=== PATIENT | male | born 1935 | race Caucasian/White ===

== ENCOUNTER 2017-04-08 06:28 | Observation (INO) | payer OTHER ==
[2017-04-08] VITALS (7 sets, daily range): BP systolic 130–156; BP diastolic 59–66
[~2017-04-08] VITALS: Ht 182.9 cm; Wt 117.9 kg
--- NOTE | ~2017-04-08 | EKG ---
[address] [address] ELECTROCARDIOGRAM REPORT Name: LARRY BOWEN Room #: 216-P [facility] M.R.#: [id number] Admission: 04/08/17 Attend Phys: Shankar Godinez MD Discharge: Date of : 39 Report #: [id number] THIS REPORT FOR: //name// [facility] Test Date: 2017-04-08 Test Time: 06:59:38 Pat Name: LARRY BOWEN Department: Room: 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 MAZARIEGOS : 1935 Requested By: Shankar Godinez Order Number: [id number] MD: Richard Granados Measurements Intervals [place] Rate: 64 P: 0 PA: QRS: 76 QRSD: 188 T: QT: QTc: 0 Interpretive Statements Ventricular-paced rhythm No further analysis attempted due to paced rhythm Compared to ECG 06/28/2013 08:20:15 Left bundle-branch block no longer present Electronically Signed On 04-08-2017 15:28:40 CDT by Richard Granados [email or web address] <ELECTRONICALLY SIGNED> By: Richard Granados MD 04/08/17 1528 0659 0659 Richard Granados MD /RICA
--- NOTE | ~2017-04-08 | EKG ---
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 : 1935 Requested By: Shankar Gdoinez Order Number: [id number] MD: Richard Granados Measurements Intervals [place] Rate: 60 P: 0 MI: 58 QRS: -55 QRSD: 223 T: 123 QT: 527 QTc: 527 Interpretive Statements Ventricular-paced rhythm No further analysis attempted due to paced rhythm Compared to ECG 06/28/2013 08:20:15 Left bundle-branch block no longer present Electronically Signed On 04-08-2017 15:35:52 CDT by Richard Granados [email or web address] <ELECTRONICALLY SIGNED> By: Richard Granados MD 04/08/17 1535 134 134 Richard Granados MD /RICA
--- NOTE | ~2017-04-08 | D ---
[facility] [place] [address] DISCHARGE SUMMARY Name: LARRY BOWEN Room #: 216-P [facility] Brenden Peres#: [id number] Admission: 04/08/17 Attend Phys: Shankar Godinez MD Discharge: 04/09/17 Date of : 39 Report #: [id number] THIS REPORT FOR: //name// CC: Ari Godinez DATE OF SERVICE: 04/09/2017 FINAL DIAGNOSES: 1. Unstable angina, status post coronary angioplasty. 2. History of coronary artery disease with multiple stent procedures. 3. Paroxysmal atrial fibrillation. 4. Heart block status post permanent pacemaker in 2011. 5. Symptomatic PVCs and bigeminy. 6. Hypertension. 7. Hypercholesterolemia. 8. Prostate cancer. HOSPITAL COURSE: Please see the original H and P for full details. He presented with recent onset of unstable angina. Just walking would elicit chest pains. Please see the cardiac catheterization report for full details. 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 He was found to have a new, subtotal occlusion within the mid LAD segment. The diagnostic cardiac catheterization was performed in view of the left radial artery approach. Due to excessive tortuosity of the left subclavian artery, the interventional procedure had to be performed via the right femoral artery access. A drug-eluting stent was placed into the subtotal LAD occlusion. He has remained hemodynamically stable overnight. The patient denies any episodes of chest pains or shortness of breath. He is stable for discharge. FINAL DISPOSITION: He will continue with amiodarone 200 mg daily, Elavil, aspirin 81 mg daily, Lipitor 20 mg tablet half a tablet daily, Coreg 12.5 mg twice a day. He will resume Pradaxa therapy 150 mg twice a day, fish oil, hydrochlorothiazide once a day, Bystolic 5 mg daily, Benicar 40 mg daily, Prilosec and he will continue with Plavix therapy 75 mg once a day. <ELECTRONICALLY SIGNED> By: Shankar Godinez MD 04/11/17 0759 0937 Shankar Godinez MD /nt
--- NOTE | ~2017-04-08 | H ---
[facility] [address] [address] HISTORY AND PHYSICAL Name: LARRY BOWEN [id number] Admission: 04/08/17 Attend Phys: Shankar Godinez MD Discharge: Date of : 39 Report #: [id number] THIS REPORT FOR: //name// CC: Ari Godinez DATE OF SERVICE: 04/08/2017 DATE OF SERVICE: 04/08/2017 INDICATION: Chest pain. HISTORY OF PRESENT ILLNESS: This is a 81-year-old gentleman presenting with recurrent chest pains with exertion. He has a history of stent to the RCA, normal circumflex artery and LAD. He underwent placement of a permanent pacemaker in 2011. He also has a history of paroxysmal atrial fibrillation, hypertension, hypercholesterolemia, sleep apnea and symptomatic PVCs. Recently, he reported having occasional episodes of chest pains with moderate levels of physical exertion. At that time, he wanted to continue with medical management only. For the past 2 weeks, he has had a progression of his symptoms, occurring with lesser amounts of exertion. Just walking will elicit his anginal episodes. He offers no complaints of fever, nausea, diarrhea, abdominal pain, or orthopnea. PAST MEDICAL HISTORY: In 2009, stent to the RCA and a normal circumflex. In 2013, stent to the LAD (known to have a tortuous right subclavian artery). Permanent pacemaker in 2011 for heart block. Hypertension, hypercholesterolemia, sleep apnea, history pseudoaneurysm status post thrombin injection, symptomatic PVCS, mild to moderate aortic insufficiency. ALLERGIES: None. MEDICATIONS: Aspirin once a day, amiodarone 200 mg daily, Lipitor 10 mg, Coreg 12.5 mg twice a day, Pradaxa on hold, omeprazole 20 mg, Benicar 40 mg daily. SOCIAL HISTORY: Negative for tobacco use. FAMILY HISTORY: Negative for premature CAD. REVIEW OF SYSTEMS: A full 10-point review of systems performed. Only the pertinent positives and negatives as described in the HPI. PHYSICAL EXAMINATION: VITAL SIGNS: Blood pressure is 156/60, heart rate is 60 beats per minute. GENERAL APPEARANCE: An overweight male, in no acute respiratory distress. [facility] [address] [place] [address] HISTORY AND PHYSICAL Name: LARRY BOWEN Room #: REG [facility]#: [id number] Admission: 04/08/17 Attend Phys: Shankar Godinez MD Discharge: Date of : 39 Report #: [id number] HEAD AND EYES: Normocephalic. Sclerae are anicteric. ENT: Oral mucosa moist. NECK: Supple, no JVD. LUNGS: Clear to auscultation. CARDIAC: Regular rate and rhythm, S1, S2 positive. ABDOMEN: Soft. Bowel sounds positive. EXTREMITIES: No cyanosis. Trace edema. LABORATORY VALUES: ECG reveals ventricular paced rhythm. ASSESSMENT: 1. Unstable angina. 2. Permanent pacemaker. 3. Paroxysmal atrial fibrillation. 4. Symptomatic PVCs. 5. Hypertension. 6. Hypercholesterolemia. 7. Gastroesophageal reflux disease. PLAN: As outlined above, the patient presents with unstable angina. The plan is to proceed with a cardiac catheterization. <ELECTRONICALLY SIGNED> By: Shankar Godinez MD 04/08/17 0850 0 Shankar Godinez MD /nt
--- NOTE | ~2017-04-08 | CATHLAB ---
[facility] [address] [place] [address] INVASIVE PROCEDURE REPORT Name: LARRY BOWEN Room #: 216-P [facility] IN ..#: [id number] Admission: 04/08/17 Attend Phys: Shankar Godinez MD Discharge: Date of : 39 Date of Service: 04/08/17 1829 Report #: [id number] THIS REPORT FOR: //name// APPROVED REPORT Patient Details Patient Status: In-Patient Room #: The patient is a 81 year-old male Event Personnel Shankar Godinez Signal Maintenance Technician, Anibal Valenzuela RN, Miley Dumont Sandifer, David Monitor Procedures Performed Left Heart Cath w/or w/o Coronaries [id number] [facility] [address] w/wo Plasty Single DIAG 431600 Indication Dyspnea, Unstable angina Risk Factors Hypercholesterolemia, Coronary Artery DiseaseHypertension Previous Procedures/Diagnoses Previous PCI Procedure Narrative The left wrist and right groin was infiltrated with 1% Lidocaine subcutaneous anesthesia. A PINNACLE 6FR Sheath #[id number] sheath was inserted into the RFA^. Coronary angiography was performed using coronary diagnostic catheters. The right coronary system was accessed and visualized with a JR4 catheter. The left coronary system was accessed and visualized with a JL4 catheter. The left ventricle was accessed and visualized with a 5FR MP A2 #[id number] catheter. Left ventricular/Aortic Valve gradient assessed . Closure device was deployed with a 6 Fr MYNXGRIP 6/7F #[id number]. The patient tolerated the procedure well and there were no complications associated with the procedure. There was no hematoma. Intraoperative Conscious Sedation Sedation start time: 11:02 Case end Time: 11:48 Fentanyl 50.0 mcg Versed 1.0 mg Fluoro Time: 32.00 minutes [facility] [address] [place] [address] INVASIVE PROCEDURE REPORT Name: LARRY BOWEN Room #: 216-P [facility]#: [id number] Admission: 04/08/17 Attend Phys: Shankar Godinez MD Discharge: Date of : 39 Date of Service: 04/08/17 1829 Report #: [id number] Dose: 4859 mGy Contrast Type and Amount: Visipaque 305 ml Coronary Angiography The patient's coronary anatomy is right dominant. Diagnostic Cath Left Main Separate ostia for LAD and anomalous left circumflex artery. LAD Stent in the ostial/proximal segment with mild restenosis. There is a severe, subtotal occlusion in the mid-segment, just after the takeoff of the first diagonal artery and septal retort pre cooker. There is SAUL 2 blood flow down the distal LAD. Diagonal 1 Moderate size caliber vessel, mild disease in the proximal segment, 30%. Circumflex Anomalous takeoff, off the right coronary cusp. There is a stent in the proximal segment, patent with mild restenosis. Right Coronary Moderate to large size caliber vessel, dominant. There are multiple overlapping stents in the proximal, mid and distal segments. Patent with mild to moderate restenosis. R PDA Patent stent in the proximal segment, with mild restenosis. RPLV Moderate size caliber vessel, no flow limiting lesions. Left Ventriculography Left Ventriculography was not performed. A catheter was placed in the left ventricle to measure the LVEDP and LV outflow tract gradient. Hemodynamics The aortic pressure is 126/57 mmHg with a mean of 85 mmHg. The left ventricular pressure is 131/13 mmHg with a mean of mmHg. The left ventricular end diastolic pressure is 18 mmHg. There was no gradient across the aortic valve upon pullback. Pullback from the left ventricle to the aorta revealed no gradient across the aortic valve. PCI Technique Lesion Anticoagulation was achieved with Angiomax. Percutaneous coronary intervention was performed on the Unspecified. A VISTA 6FR XB 4 #[id number] Guide Catheter was used to engage the LCA ostium. A Luge Wire .014 x 182CM #[id number] Interventional Guidewire was used to cross the lesion. BALLOON DILATION A Balloon catheter 2.5X9 MOZEC was inserted and inflated up to [facility] [address] [place] [address] INVASIVE PROCEDURE REPORT Name: JESSILARRY Zayas Room #: 216-P [facility] IN .R.#: [id number] Admission: 04/08/17 Attend Phys: Shankar Godinez MD Discharge: Date of : 39 Date of Service: 04/08/17 1829 Report #: [id number] 10.00atm for 24seconds. Additional Inflation: 10.00atm for 20seconds. STENT DEPLOYMENT A drug-eluting stent RESOLUTE RX 3.0 X 12 #[id number] was inserted and inflated up to 14.00atm for 30seconds. Additional Inflation: 10.00atm for 24seconds. POST STENT DEPLOYMENT BALLOON DILATION A Balloon catheter Euphora NC RX 3.25 x 8 #[id number] was inserted and inflated up to 18.00atm for 30seconds. Final angiography reveals 0 % stenosis with SAUL flow. COMMENTS The diagnostic cardiac catheterization was performed via the left radial artery access. However, due to excessive tortuosity of the left subclavian artery, the interventional procedure was performed via the right femoral artery access. Conclusion 1. Successful insertion of a drug-eluting stent into the subtotal occlusion at the mid segment of the LAD. 2. Patent stent in the ostial/proximal segment of the LAD. 3. Patent stents in the RCA. 4. 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 5. Recommend medical therapy. Recommendations Medical Therapy <ELECTRONICALLY SIGNED> By: Shankar Godinez MD 04/08/171828 28 28 Shankar Godinez MD /INF
--- NOTE | ~2017-04-08 | EKG ---
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: SHAILESH : 1935 Requested By: Shankar Godinez Order Number: [id number] MD: Richard Granados Measurements Intervals [place] Rate: 60 P: MS: QRS: -58 QRSD: 244 T: 123 QT: 575 QTc: 575 Interpretive Statements Afib/flutter and ventricular-paced rhythm No further analysis attempted due to paced rhythm Compared to ECG 04/08/2017 13:41:35 No significant changes Electronically Signed On 04-09-2017 15:45:46 CDT by Richard Granados [email or web address] <ELECTRONICALLY SIGNED> By: Richard Granados MD 04/09/17 1545 0638 0638 Richard Granados MD /RICA
[~2017-04-08 06:28] MED LIST: ASPIRIN325 PO; BENICAR20 MG PO; BENICAR40 MG PO; BYSTOLIC 5 MG5 M1 PO; EFFIENT10 MG PO; FISH OIL 1,0001 EAC5 PO; IMDUR 30 MG TAB30 M1 PO; KEFLEX500 MG PO; LIPITOR10 MG PO; LIPITOR20 MG PO; MELATONIN 10 M1 EACH PO; NITROGLYCERIN0.4 MG SL; OCUVITE LUTEIN1 EAC1 PO; OMEPRAZOLE 20 M20 M1 PO; TOPROL XL50 MG PO
[2017-04-08] MEDS ORDERED: ASPIR 8181 MG PO (07:18)
[2017-04-08] MEDS ORDERED: PRADAXA150 MG PO (07:20)
[2017-04-08] MEDS ORDERED: CARVEDILOL12.5 MG PO (07:27)
[2017-04-08] MEDS ORDERED: PACERONE 200 M200 M1 PO (07:28)
[2017-04-08] MEDS ORDERED: OXYCONTIN10 M1 PO (07:29)
[2017-04-08 07:32] LABS: HEMATOCRIT 40.6 % (42.0-52.0); HEMOGLOBIN 13.4 gm/dL (14.0-18.0); MCH 28.5 pg (26.0-34.0); MCHC 33.1 g/dL (28.0-37.0); RBC 4.72 mil/uL (4.50-6.00); RDW 15.6 % (10.5-14.5); WBC 8.5 thou/uL (4.0-11.0)
[2017-04-08 07:39] LABS: CALCIUM 9.1 mg/dL (8.5-10.1); CREATININE 1.3 mg/dL (0.7-1.3); POTASSIUM 4.4 mmol/L (3.5-5.1)
[2017-04-09 03:18] VITALS: BP 142/71
[2017-04-09 03:32] LABS: HEMATOCRIT 38.9 % (42.0-52.0); HEMOGLOBIN 12.7 gm/dL (14.0-18.0); MCH 28.3 pg (26.0-34.0); MCHC 32.6 g/dL (28.0-37.0); MCV 86.7 fL (80.0-100.0); RBC 4.49 mil/uL (4.50-6.00); RDW 15.3 % (10.5-14.5); WBC 8.7 thou/uL (4.0-11.0)
[2017-04-09 03:51] LABS: CALCIUM 8.5 mg/dL (8.5-10.1); CREATININE 1.1 mg/dL (0.7-1.3); POTASSIUM 4.1 mmol/L (3.5-5.1); TROPONIN-I 0.15 ng/mL (<0.06)
[2017-04-09 07:45] VITALS: BP 162/66
[2017-04-09] MEDS ORDERED: PLAVIX 75 MG TA75 M1 PO (09:05)
[2017-04-09 10:07] VITALS: BP 162/66
[2017-04-09 11:15] VITALS: BP 162/66
== END 2017-04-09 10:45 | disposition home or self-care (01) ==
LOC: CATH 06:28 → 2N 15:00
PROVIDERS: Internal Medicine Cardiovascular Disease
DX: I25.110 Atherosclerotic heart disease of native coronary artery with unstable angina pectoris (principal); I48.0 Paroxysmal atrial fibrillation; I49.3 Ventricular premature depolarization; I10 Essential (primary) hypertension; E78.00 Pure hypercholesterolemia, unspecified; K21.9 Gastro-esophageal reflux disease without esophagitis; C61 Malignant neoplasm of prostate